=== PATIENT | female | born 1975 | race African-American/Black ===

== ENCOUNTER 2017-01-10 00:54 | Emergency (ER) | payer BC, MEDICAID ==
[~2017-01-10] VITALS: Ht 165.1 cm; Wt 120.0 kg
[2017-01-10] MEDS ORDERED: HYDROCODONE/ACETAMINOPHEN 5/325MG TABLET PO ONE (05:15)
[2017-01-10 05:30] VITALS: BP 121/83
== END 2017-01-10 07:50 | disposition home or self-care (01) ==
LOC: ER 05:20
DX: S13.4XXA Sprain of ligaments of cervical spine, initial encounter (principal); S09.8XXA Other specified injuries of head, initial encounter; M54.9 Dorsalgia, unspecified; V49.49XA Driver injured in collision with other motor vehicles in traffic accident, initial encounter; Y93.89 Activity, other specified; Y92.488 Other paved roadways as the place of occurrence of the external cause; I10 Essential (primary) hypertension; M50.30 Other cervical disc degeneration, unspecified cervical region; J32.9 Chronic sinusitis, unspecified
CPT/HCPCS: 70450; 72125; 81025; 99284

== ENCOUNTER 2021-05-14 06:08 | Emergency (ER) | payer MEDICAID ==
[~2021-05-14] VITALS: Ht 162.6 cm; Wt 84.0 kg
[2021-05-14 06:22] VITALS: BP 136/99
== END 2021-05-14 11:46 | disposition home or self-care (01) ==
LOC: ER 06:08
DX: Z53.21 Procedure and treatment not carried out due to patient leaving prior to being seen by health care provider (principal); R10.12 Left upper quadrant pain; R11.2 Nausea with vomiting, unspecified

== ENCOUNTER 2021-06-28 07:40 | Emergency (ER) | payer MEDICAID, OTHER ==
[~2021-06-28] VITALS: Ht 162.6 cm; Wt 84.0 kg
[2021-06-28] MEDS ORDERED: KETOROLAC 60MG/2ML VIAL IM ONE (08:30)
[2021-06-28 08:39] VITALS: BP 148/90
[2021-06-28] MEDS ORDERED: IBUP-2029 MT (09:31)
[2021-06-28] MEDS ORDERED: CYCL10TA7 MT (09:31)
== END 2021-06-28 09:43 | disposition home or self-care (01) ==
LOC: ER 07:40
DX: M54.50 Low back pain, unspecified (principal); M54.12 Radiculopathy, cervical region; I10 Essential (primary) hypertension
CPT/HCPCS: 81025; 93005; 96372; 99283; J1885